=== PATIENT | female | born 1955 | race Caucasian/White ===

== ENCOUNTER 2019-08-02 09:57 | Day surgery (SDC) | payer OTHER ==
[~2019-08-02] VITALS: Ht 157.5 cm; Wt 86.5 kg
[~2019-08-02 09:57] MED LIST: ACIDOPHILUS1 EACH PO; ATEN100 PO; Acidophilus La100 GM PO; CALAN PO; CENTRUM SILVER1 EAC2 PO; CLARITIN10 MG PO; CYAN500 PO; DICLOFENAC SOD100 G1; ESOMEPRAZOLE MA40 MG PO; ETOD400 PO; FERSU300 PO; FISH OIL 1,2001 EAC4 PO; FISH1000 PO; FLUO10 PO; HYDSUL200 PO; IRON SULFATE PO; LORA10 PO; Multiple Vitam1 EAC1 PO; NAPR250 PO; NAPR375 PO; NUVIGIL50 MG PO; NYSTRITC; Norco 5-325 Ta1 EACH PO; PANT40 PO; PILO5 PO; PROM25 PO; Prinivil10 MG PO; Prozac20 MG PO; SERT100 PO; Strattera80 MG PO; TRAZ100 PO; VERAPAMIL SR240 MG PO; VITAMIN D35000 UNI1 PO; VITAMIN D35000 UNIT PO
--- NOTE | 2019-08-02 11:24 | NUR ---
08/02/19 1124 Hannah Winkler ([facility] PT UPDATED ON DELAY. PT RESTING COMFORTABLY WITH CALL LIGHT WITHIN REACH. WARM BLANKET OFFERED. DENIED FURTHER NEEDS AT THIS TIME.
--- NOTE | 2019-08-02 13:48 | NUR ---
08/02/19 1342 Melany Calixto PT DENIES PAIN AND NAUSEA IN SDU. PARISA AT CHAIRSIDE FOR DC INSTRUCTIONS. ICE AND ELEVATION IMPLEMENTED. PT MEDICATED WITH PO MED PRIOR TO DC
== END 2019-08-02 13:41 | disposition home or self-care (01) ==
LOC: ORSCSDS 09:57
PROVIDERS: Podiatrist Foot & Ankle Surgery
PROC: 0SGM04Z Fusion of Right Metatarsal-Phalangeal Joint with Internal Fixation Device, Open Approach (ICD-10-PCS; principal; 2019-08-02 11:15)
PROC: 0QSQ04Z Reposition Right Toe Phalanx with Internal Fixation Device, Open Approach (ICD-10-PCS; principal; 2019-08-02 11:15)
DX: M20.61 Acquired deformities of toe(s), unspecified, right foot (principal); I10 Essential (primary) hypertension; F90.9 Attention-deficit hyperactivity disorder, unspecified type; J45.909 Unspecified asthma, uncomplicated; D47.3 Essential (hemorrhagic) thrombocythemia; F33.1 Major depressive disorder, recurrent, moderate; F41.1 Generalized anxiety disorder; M79.7 Fibromyalgia; Z79.899 Other long term (current) drug therapy
CPT/HCPCS: A9270-GY; C1713; J0171; J0690; J2250; J2704; J3010; J7120

== ENCOUNTER 2019-08-27 10:03 | Day surgery (SDC) | payer OTHER ==
[~2019-08-27] VITALS: Ht 157.5 cm; Wt 192.2 kg
== END 2019-08-27 12:35 | disposition home or self-care (01) ==
LOC: ORSCSDS 10:03
PROVIDERS: Internal Medicine Gastroenterology
PROC: 0DB38ZX Excision of Lower Esophagus, Via Natural or Artificial Opening Endoscopic, Diagnostic (ICD-10-PCS; principal; 2019-08-27 11:30)
PROC: 0D758ZZ Dilation of Esophagus, Via Natural or Artificial Opening Endoscopic (ICD-10-PCS; principal; 2019-08-27 11:30)
PROC: 0DB18ZX Excision of Upper Esophagus, Via Natural or Artificial Opening Endoscopic, Diagnostic (ICD-10-PCS; principal; 2019-08-27 11:30)
DX: R13.10 Dysphagia, unspecified (principal); J45.909 Unspecified asthma, uncomplicated; F32.9 Major depressive disorder, single episode, unspecified; E66.9 Obesity, unspecified; Z68.35 Body mass index [BMI] 35.0-35.9, adult; Z79.899 Other long term (current) drug therapy
CPT/HCPCS: 88305; J2704; J7120

== ENCOUNTER 2020-05-22 09:01 | Day surgery (SDC) | payer BC, OTHER ==
[~2020-05-22] VITALS: Ht 157.5 cm; Wt 82.3 kg
== END 2020-05-22 12:05 | disposition home or self-care (01) ==
LOC: ORSCSDS 09:01
PROVIDERS: Podiatrist Foot & Ankle Surgery
PROC: 0SPN04Z Removal of Internal Fixation Device from Left Metatarsal-Phalangeal Joint, Open Approach (ICD-10-PCS; principal; 2020-05-22 10:30)
DX: T84.498A Other mechanical complication of other internal orthopedic devices, implants and grafts, initial encounter (principal); M20.22 Hallux rigidus, left foot; I10 Essential (primary) hypertension; R56.9 Unspecified convulsions; E66.01 Morbid (severe) obesity due to excess calories; Z68.33 Body mass index [BMI] 33.0-33.9, adult; Z79.899 Other long term (current) drug therapy
CPT/HCPCS: J0171; J0690; J2250; J2405; J2704; J7120

== ENCOUNTER → 2022-05-26 | Outpatient (CLI) | payer BC, OTHER ==
[2022-05-26 18:21] LABS: BASOPHILS ABSOLUTE AUTO 0.07 K/mm3 (0.00-0.23); BASOPHILS PERCENT AUTO 1 % (0-2); EOSINOPHILS ABSOLUTE AUTO 0.23 K/mm3 (0.00-0.68); EOSINOPHILS PERCENT AUTO 3 % (0-6); Hematocrit 38.9 % (33.0-51.0); Hemoglobin 12.2 g/dL (11.5-16.0); IMMATURE GRAN ABSOLUTE AUTO 0.02 K/mm3 (0.00-0.10); IMMATURE GRAN PERCENT AUTO 0 % (0-1); LYMPHOCYTES ABSOLUTE AUTO 1.58 K/mm3 (0.84-5.20); LYMPHOCYTES PERCENT AUTO 20 % (21-46); MONOCYTES ABSOLUTE AUTO 0.59 K/mm3 (0.16-1.47); MONOCYTES PERCENT AUTO 8 % (4-13); Mean Corpuscular HGB 24.3 pg (26.0-34.0); Mean Corpuscular HGB Conc 31.4 g/dL (31.5-36.5); Mean Corpuscular Volume 78 fL (80-100); Mean Platelet Volume 10.4 fL (9.1-12.4); NEUTROPHILS ABSOLUTE AUTO 5.31 K/mm3 (1.96-9.15); NEUTROPHILS PERCENT AUTO 68 % (41-73); Platelet Count 406 K/mm3 (150-400); RDW Coefficient Variation 15.3 % (11.7-14.2); RDW Standard Deviation 42.7 fL (35.1-46.3); Red Blood Cell Count 5.02 M/mm3 (3.80-5.20)
[2022-05-26 18:29] LABS: Albumin, Blood 3.7 g/dL (3.4-5.0); Albumin/Globulin Ratio 1.2 (0.8-1.8); Bilirubin, Total 0.2 mg/dL (0.1-1.0); Bun/Creatinine Ratio 27.9 (12.0-20.0); Calcium, Blood 9.8 mg/dL (8.5-10.1); Creatinine, Blood 0.83 mg/dL (0.40-1.00); Globulin, Blood 3.2 g/dL (2.2-4.0); Potassium, Blood 4.6 mmol/L (3.5-5.5); Total Protein, Blood 6.9 g/dL (6.4-8.2)
== END | disposition home or self-care (01) ==
LOC: LAB SHORT 17:48
PROVIDERS: Internal Medicine Rheumatology
DX: R76.8 Other specified abnormal immunological findings in serum (principal)
CPT/HCPCS: 80053; 85025; 85651

== ENCOUNTER → 2022-08-24 | Outpatient (CLI) | payer MEDICARE, BC ==
[2022-09-02 09:10] LABS: HSV-1 DNA Negative (Negative); HSV-2 DNA Negative (Negative)
== END | disposition home or self-care (01) ==
LOC: LAB SHORT 15:06
PROVIDERS: Physician Assistant Medical
DX: L08.9 Local infection of the skin and subcutaneous tissue, unspecified (principal)
CPT/HCPCS: 87529; 87798

== ENCOUNTER → 2023-02-22 | Outpatient (CLI) | payer MEDICARE, OTHER ==
[2023-02-22 19:00] LABS: BASOPHILS ABSOLUTE AUTO 0.06 K/mm3 (0.00-0.23); BASOPHILS PERCENT AUTO 1 % (0-2); EOSINOPHILS ABSOLUTE AUTO 0.21 K/mm3 (0.00-0.68); EOSINOPHILS PERCENT AUTO 3 % (0-6); Hematocrit 40.1 % (33.0-51.0); Hemoglobin 12.4 g/dL (11.5-16.0); IMMATURE GRAN ABSOLUTE AUTO 0.01 K/mm3 (0.00-0.10); IMMATURE GRAN PERCENT AUTO 0 % (0-1); LYMPHOCYTES ABSOLUTE AUTO 1.77 K/mm3 (0.84-5.20); LYMPHOCYTES PERCENT AUTO 22 % (21-46); MONOCYTES ABSOLUTE AUTO 0.68 K/mm3 (0.16-1.47); MONOCYTES PERCENT AUTO 8 % (4-13); Mean Corpuscular HGB 23.8 pg (26.0-34.0); Mean Corpuscular HGB Conc 30.9 g/dL (31.5-36.5); Mean Corpuscular Volume 77 fL (80-100); Mean Platelet Volume 10.5 fL (9.1-12.4); NEUTROPHILS ABSOLUTE AUTO 5.41 K/mm3 (1.96-9.15); NEUTROPHILS PERCENT AUTO 67 % (41-73); Platelet Count 405 K/mm3 (150-400); RDW Coefficient Variation 17.5 % (11.7-14.2); Red Blood Cell Count 5.22 M/mm3 (3.80-5.20); White Blood Cell Count 8.14 K/mm3 (4.00-11.30)
[2023-02-22 19:28] LABS: Albumin, Blood 3.5 g/dL (3.4-5.0); Albumin/Globulin Ratio 1.1 (0.8-1.8); Bilirubin, Total 0.2 mg/dL (0.1-1.0); Bun/Creatinine Ratio 32.1 (12.0-20.0); Calcium, Blood 8.9 mg/dL (8.5-10.1); Creatinine, Blood 0.94 mg/dL (0.40-1.00); Globulin, Blood 3.1 g/dL (2.2-4.0); Potassium, Blood 3.9 mmol/L (3.5-5.5); Total Protein, Blood 6.6 g/dL (6.4-8.2)
== END | disposition home or self-care (01) ==
LOC: LAB 16:00 → LAB SHORT 16:00
PROVIDERS: Internal Medicine Rheumatology
DX: R76.8 Other specified abnormal immunological findings in serum (principal)
CPT/HCPCS: 80053; 85025; 85651

== ENCOUNTER → 2023-05-11 | Outpatient (CLI) | payer MEDICARE, OTHER ==
[2023-05-15 15:09] LABS: HPV 16 Negative (Negative); HPV 18 Negative (Negative); HPV OTHER HR TYPES Negative (Negative)
== END | disposition home or self-care (01) ==
LOC: LAB SHORT 11:50 → LAB 11:50
PROVIDERS: Family Medicine
DX: Z12.4 Encounter for screening for malignant neoplasm of cervix (principal)
CPT/HCPCS: 87624; G0145

== ENCOUNTER → 2024-04-04 | Outpatient (CLI) | payer MEDICARE, OTHER ==
[2024-04-04 19:10] LABS: BASOPHILS ABSOLUTE AUTO 0.07 K/mm3 (0.00-0.23); BASOPHILS PERCENT AUTO 1 % (0-2); EOSINOPHILS ABSOLUTE AUTO 0.26 K/mm3 (0.00-0.68); EOSINOPHILS PERCENT AUTO 4 % (0-6); Hematocrit 43.1 % (33.0-51.0); Hemoglobin 13.6 g/dL (11.5-16.0); IMMATURE GRAN ABSOLUTE AUTO 0.02 K/mm3 (0.00-0.10); IMMATURE GRAN PERCENT AUTO 0 % (0-1); LYMPHOCYTES ABSOLUTE AUTO 1.51 K/mm3 (0.84-5.20); LYMPHOCYTES PERCENT AUTO 20 % (21-46); MONOCYTES ABSOLUTE AUTO 0.61 K/mm3 (0.16-1.47); MONOCYTES PERCENT AUTO 8 % (4-13); Mean Corpuscular HGB Conc 31.6 g/dL (31.5-36.5); Mean Corpuscular Volume 79 fL (80-100); Mean Platelet Volume 10.7 fL (9.1-12.4); NEUTROPHILS ABSOLUTE AUTO 4.94 K/mm3 (1.96-9.15); NEUTROPHILS PERCENT AUTO 67 % (41-73); Platelet Count 367 K/mm3 (150-400); RDW Standard Deviation 45.6 fL (35.1-46.3); Red Blood Cell Count 5.45 M/mm3 (3.80-5.20); White Blood Cell Count 7.41 K/mm3 (4.00-11.30)
[2024-04-04 19:20] LABS: Albumin, Blood 3.8 g/dL (3.4-5.0); Albumin/Globulin Ratio 1.3 (0.8-1.8); Bilirubin, Total 0.4 mg/dL (0.1-1.0); Bun/Creatinine Ratio 30.6 (12.0-20.0); Calcium, Blood 9.8 mg/dL (8.5-10.1); Creatinine, Blood 0.85 mg/dL (0.40-1.00); Globulin, Blood 2.9 g/dL (2.2-4.0); Potassium, Blood 4.3 mmol/L (3.5-5.5); Total Protein, Blood 6.7 g/dL (6.4-8.2)
== END | disposition home or self-care (01) ==
LOC: LAB 17:31 → LAB SHORT 17:31
PROVIDERS: Internal Medicine Rheumatology
DX: R76.8 Other specified abnormal immunological findings in serum (principal)
CPT/HCPCS: 80053; 85025; 85651

== ENCOUNTER → 2024-07-09 | Outpatient (CLI) | payer MEDICARE, OTHER ==
[2024-07-09 16:04] LABS: BASOPHILS PERCENT AUTO 2 % (0-2); EOSINOPHILS ABSOLUTE AUTO 0.54 K/mm3 (0.00-0.68); EOSINOPHILS PERCENT AUTO 9 % (0-6); Hematocrit 40.2 % (33.0-51.0); Hemoglobin 12.6 g/dL (11.5-16.0); IMMATURE GRAN ABSOLUTE AUTO 0.02 K/mm3 (0.00-0.10); IMMATURE GRAN PERCENT AUTO 0 % (0-1); LYMPHOCYTES ABSOLUTE AUTO 1.63 K/mm3 (0.84-5.20); LYMPHOCYTES PERCENT AUTO 26 % (21-46); MONOCYTES ABSOLUTE AUTO 0.49 K/mm3 (0.16-1.47); MONOCYTES PERCENT AUTO 8 % (4-13); Mean Corpuscular HGB Conc 31.3 g/dL (31.5-36.5); Mean Corpuscular Volume 77 fL (80-100); Mean Platelet Volume 10.3 fL (9.1-12.4); NEUTROPHILS ABSOLUTE AUTO 3.47 K/mm3 (1.96-9.15); NEUTROPHILS PERCENT AUTO 56 % (41-73); Platelet Count 370 K/mm3 (150-400); RDW Coefficient Variation 15.8 % (11.7-14.2); RDW Standard Deviation 43.5 fL (35.1-46.3); Red Blood Cell Count 5.24 M/mm3 (3.80-5.20); White Blood Cell Count 6.25 K/mm3 (4.00-11.30)
[2024-07-09 16:38] LABS: Alanine Aminotransfer (ALT/SGP 28 U/L (12-78); Albumin, Blood 3.5 g/dL (3.4-5.0); Albumin/Globulin Ratio 1.1 (0.8-1.8); Alk Phos 86 U/L (50-136); Anion Gap 7 mmol/L (3-11); Aspartate Aminotrans (AST/SGOT 22 U/L (12-37); Bilirubin, Total 0.5 mg/dL (0.1-1.0); Blood Urea Nitrogen 18 mg/dL (8-24); Bun/Creatinine Ratio 20.2 (12.0-20.0); CO2, Blood 27 mmol/L (21-32); Calcium, Blood 9.5 mg/dL (8.5-10.1); Chloride, Blood 109 mmol/L (98-108); Cholesterol 155 mg/dL (50-200); Creatinine, Blood 0.89 mg/dL (0.40-1.00); Globulin, Blood 3.2 g/dL (2.2-4.0); Glomerular Filtration Rate 71 (60-); Glucose, Blood 89 mg/dL (70-99); HDL Cholesterol 76 mg/dL (>39); LDL/HDL RATIO 0.8; Low Density Lipoprotein Chol 58 mg/dL (0-110); Potassium, Blood 4.3 mmol/L (3.5-5.5); Sodium, Blood 139 mmol/L (136-145); Thyroid Stimulating Hormone 0.944 uIU/mL (0.360-4.800); Total Protein, Blood 6.7 g/dL (6.4-8.2); Triglycerides 105 mg/dL (30-160); Very Low Density Lipoprot Chol 21 mg/dL (6-32)
== END | disposition home or self-care (01) ==
LOC: LAB 14:57 → LAB SHORT 14:57
PROVIDERS: Family Medicine
DX: Z51.81 Encounter for therapeutic drug level monitoring (principal); Z79.899 Other long term (current) drug therapy
CPT/HCPCS: 80053; 80061; 82306; 83036; 84443; 85025

== ENCOUNTER → 2025-04-25 | Outpatient (CLI) | payer MEDICARE ==
[~2025-04-25] MED LIST changes: +Simvastatin20 MG PO
[2025-04-25 17:36] LABS: BASOPHILS ABSOLUTE AUTO 0.09 K/mm3 (0.00-0.23); BASOPHILS PERCENT AUTO 2 % (0-2); EOSINOPHILS ABSOLUTE AUTO 0.26 K/mm3 (0.00-0.68); EOSINOPHILS PERCENT AUTO 5 % (0-6); Hematocrit 41.5 % (33.0-51.0); Hemoglobin 12.6 g/dL (11.5-16.0); IMMATURE GRAN ABSOLUTE AUTO 0.01 K/mm3 (0.00-0.10); IMMATURE GRAN PERCENT AUTO 0 % (0-1); LYMPHOCYTES ABSOLUTE AUTO 1.39 K/mm3 (0.84-5.20); LYMPHOCYTES PERCENT AUTO 24 % (21-46); MONOCYTES ABSOLUTE AUTO 0.48 K/mm3 (0.16-1.47); MONOCYTES PERCENT AUTO 8 % (4-13); Mean Corpuscular HGB Conc 30.4 g/dL (31.5-36.5); Mean Corpuscular Volume 75 fL (80-100); NEUTROPHILS ABSOLUTE AUTO 3.50 K/mm3 (1.96-9.15); NEUTROPHILS PERCENT AUTO 61 % (41-73); NRBC ABSOLUTE 0.00 K/mm3 (0.00-0.02); NRBC Auto 0.0 /100 WBC (0.0-0.2); Platelet Count 389 K/mm3 (150-400); RDW Coefficient Variation 17.0 % (11.7-14.2); RDW Standard Deviation 45.2 fL (35.1-46.3)
[2025-04-25 18:09] LABS: Alanine Aminotransfer (ALT/SGP 31 U/L (12-78); Albumin, Blood 3.6 g/dL (3.4-5.0); Albumin/Globulin Ratio 1.1 (0.8-1.8); Anion Gap 6 mmol/L (3-11); Aspartate Aminotrans (AST/SGOT 19 U/L (12-37); Bilirubin, Total 0.4 mg/dL (0.1-1.0); Blood Urea Nitrogen 19 mg/dL (8-24); CHOL/HDL RATIO 2.0; CO2, Blood 29 mmol/L (21-32); Calcium, Blood 9.4 mg/dL (8.5-10.1); Chloride, Blood 109 mmol/L (98-108); Cholesterol 156 mg/dL (50-200); Creatinine, Blood 0.73 mg/dL (0.40-1.00); Globulin, Blood 3.3 g/dL (2.2-4.0); Glucose, Blood 101 mg/dL (70-99); HDL Cholesterol 77 mg/dL (>39); LDL/HDL RATIO 0.8; Low Density Lipoprotein Chol 61 mg/dL (0-110); Potassium, Blood 4.5 mmol/L (3.5-5.5); Sodium, Blood 139 mmol/L (136-145); Thyroid Stimulating Hormone 1.010 uIU/mL (0.360-4.800); Total Protein, Blood 6.9 g/dL (6.4-8.2); Triglycerides 88 mg/dL (30-160); Very Low Density Lipoprot Chol 17 mg/dL (6-32)
== END | disposition home or self-care (01) ==
LOC: LAB 14:55 → LAB SHORT 14:55
PROVIDERS: Family Medicine
DX: Z51.81 Encounter for therapeutic drug level monitoring (principal); Z79.899 Other long term (current) drug therapy
CPT/HCPCS: 80053; 80061; 82306; 83036; 84443; 85025